=== PATIENT | male | born 1995 | race Two or more races ===

== ENCOUNTER 2018-10-01 16:48 | Emergency (ER) | payer OTHER ==
[2018-10-01] MEDS ORDERED: SODIUM CHLORIDE 1,000 ML IV SCH (17:15)
[2018-10-01 17:16] VITALS: BMI 29.9
--- NOTE | 2018-10-01 17:26 | PDOC ---
History of Present Illness - General Chief Complaint: Seizure Stated Complaint: SEIZURES Time Seen by Provider: 10/01/18 16:58 History Source: Patient Exam Limitations: No Limitations - History of Present Illness Initial Comments: 10/01/18 17:14 The patient is a 23M with no PMH who presents to the ER with complaints of having a seizure. The patient states that he was in his normal state of health when he had a seizure around 1600 today. He admits to being more tired than normal, but otherwise having no recent illness. He states that he came out of the bathroom, sat in a chair, and then had a seizure. He did lose consciousness but denies tongue biting, head trauma, bowel/bladder incontinence. He currently complains of feeling weak. He states that he was not disoriented when he came to. He admits to having a seizure 2 months ago, followed at [facility] and was not required to be put on any AED. The patient admits to drinking 1/2 pint of liquor every other day, smoking marijuana daily, and smoking 3-4 cigarettes daily. The patient is complaining of R shoulder pain, which he thinks he may have dislocated when he slid off the chair. He has dislocated the shoulder in the past. Past History - Past Medical History Allergies/Adverse Reactions: Allergies Allergy/AdvReac Type Severity Reaction Status Date / Time No Known Allergies Allergy Verified 10/01/18 17:29 Home Medications: Ambulatory Orders Naproxen [Naprosyn -] 500 mg PO BID #10 tablet 10/01/18 levETIRAcetam [Keppra -] 500 mg PO BID #14 tablet 10/01/18 Review of Systems - Review of Systems Able to Perform ROS?: Yes Comments:: 10/01/18 17:27 GENERAL/CONSTITUTIONAL: Positive for weakness. No fever or chills. HEAD, EYES, EARS, NOSE AND THROAT: No change in vision. No ear pain or discharge. No sore throat. CARDIOVASCULAR: No chest pain, palpitations, or lightheadedness. RESPIRATORY: No cough, wheezing, shortness of breath, or hemoptysis. GASTROINTESTINAL: No nausea, vomiting, diarrhea, constipation, or abdominal pain. GENITOURINARY: No dysuria, frequency, hematuria, or change in urination. MUSCULOSKELETAL: No joint or muscle swelling or pain. No neck or back pain. SKIN: No rash or lesions. NEUROLOGIC: Positive for seizure. No headache, numbness, tingling, focal weakness, loss of consciousness, or change in strength/sensation. Is the patient limited [place]er proficient: No *Physical Exam - Physical Exam Comments: 10/01/18 17:27 GENERAL: Well developed, well nourished. Awake and alert. No acute distress. HEENT: Normocephalic, atraumatic. Hearing grossly normal. Moist mucous membranes. PERRLA, EOMI. No conjunctival pallor. Sclera are non-icteric. NECK: Supple. Full ROM. No JVD. CARDIOVASCULAR: Regular rate and rhythm. No murmurs, rubs, or gallops. Radial pulses 2+ bilaterally. PULMONARY: No evidence of respiratory distress. Lungs clear to auscultation bilaterally. No wheezing, rales or rhonchi. ABDOMINAL: Soft. Non-tender. Non-distended. No rebound or guarding. GENITOURINARY: No CVA tenderness bilaterally. MUSCULOSKELETAL: Limited ROM in R shoulder. Otherwise, normal range of motion at all joints. No bony deformities or tenderness. EXTREMITIES: No cyanosis. No clubbing. No edema. No calf tenderness or swelling. SKIN: Warm and dry. Normal capillary refill. No rashes. No jaundice. NEUROLOGICAL: Alert, awake, appropriate. Cranial nerves 2-12 intact. No deficits to light touch and temperature in face, upper extremities and lower extremities. 5/5 strength in deltoids, biceps, triceps, quadriceps, hamstrings, and gastrocnemius. Finger to nose normal bilaterally. Normal speech. Gait is normal without ataxia. PSYCHIATRIC: Cooperative. Good eye contact. Appropriate mood and affect. ED Treatment Course - LABORATORY CBC & Chemistry Diagram: 10/01/18 17:30 10/01/18 17:20 - RADIOLOGY Radiology Studies Ordered: Category Date Time Status SHOULDER W/TRANS-RIGHT [RAD] Stat Radiology 10/01/18 17:08 Ordered Medical Decision Making - Medical Decision Making 10/01/18 17:28 The patient is a 23M who had 1 seizure in the past, not on AED, who presents to the ER after having a seizure, witnessed by the girlfriend. Imaging was done at [facility] including head CT and MRI which he was told was normal. Will not repeat imaging. Will order labs and d/w neurology for possible placement on AED. Pt is currently stable, comfortable, and well appearing. 10/01/18 19:04 CBC, CMP, CK WNL. Hydrating pt and will obtain head CT, then d/w neuro. 10/01/18 19:33 CTH negative. Hussein neuro, Dr. Avila. 10/01/18 20:10 Case d/w Dr. Avila who advises to prescribe keppra 500 BID and f/u next week in clinic. *DC/Admit/Observation/Transfer Diagnosis at time of Disposition: Seizure - Discharge Dispostion Disposition: HOME Condition at time of disposition: Stable Decision to Admit order: No - Prescriptions Prescriptions: levETIRAcetam [Keppra -] 500 mg PO BID #14 tablet Naproxen [Naprosyn -] 500 mg PO BID #10 tablet - Referrals Referrals: Yury Avila MD [Staff Physician] - - Patient Instructions Printed Discharge Instructions: DI for Seizure Disorder -- Adult Additional Instructions: Please follow up with your primary care physician in 2-3 days. Also, call Dr. Avila's office on Wednesday to schedule an appointment for next week. Please return to the ER if you have any signs or symptoms of chest pain, shortness of breath, uncontrollable fever, chills, nausea, vomiting, numbness, tingling, or weakness in any part of your body, changes in vision, or slurred speech. Please take your medications as prescribed. Please return to the ER if symptoms persist, worsen, or new symptoms arise. - Post Discharge Activity
[2018-10-01 17:42] LABS: BASO % 0.2 % (0-2.0); EOS % 0.3 % (0-4.5); HEMATOCRIT 46.2 % (35.4-49); HEMOGLOBIN 15.4 GM/dL (11.7-16.9); LYMPH % 14.3 % (8-40); MCH 30.7 pg (25.7-33.7); MCHC 33.3 g/dl (32.0-35.9); MEAN PLT VOLUME 8.3 fl (7.5-11.1); MONO % 6.2 % (3.8-10.2); PLATELET COUNT 451 K/MM3 (134-434); RBC 5.03 M/mm3 (4.00-5.60); RDW 15.5 % (11.9-15.9); WHITE BLOOD COUNT 8.4 K/mm3 (4.0-10.0)
--- NOTE | 2018-10-01 17:49 | PDOC ---
Attending Attestation - HPI HPI: 10/01/18 18:01 The patient is a 23 year old male presenting with his GF, with no significant past medical history of right shoulder dislocation an seizure, who presents to the ED complaining of a seizure today. He notes that his seizure was witnessed by his GF and lasted roughly 2-3 minutes. He denies any tongue biting, bowel / urinary incontinence or head trauma. He reports that he had a seizure 2 weeks ago and followed up with [facility] but did not require admission at the time. The patient is complaining of right shoulder pain. He has dislocated the shoulder in the past. The patient denies chest pain, shortness of breath, headache and dizziness. Denies fever, chills, nausea, vomiting, diarrhea or constipation. Allergies: None Past surgical history: None reported Social History: Alcohol use (1/2 pint of alcohol) every other day. Marijuana Daily. 3-4 Cigarettes daily. - Physicial Exam PE: 10/01/18 18:01 GENERAL: Well developed, well nourished. Awake and alert. No acute distress. HEENT: Normocephalic, atraumatic. Hearing grossly normal. Moist mucous membranes. PERRLA, EOMI. No conjunctival pallor. Sclera are non-icteric. NECK: Supple. Full ROM. No JVD. CARDIOVASCULAR: Regular rate and rhythm. No murmurs, rubs, or gallops. Radial pulses 2+ bilaterally. PULMONARY: No evidence of respiratory distress. Lungs clear to auscultation bilaterally. No wheezing, rales or rhonchi. ABDOMINAL: Soft. Non-tender. Non-distended. No rebound or guarding. GENITOURINARY: No CVA tenderness bilaterally. MUSCULOSKELETAL: Limited ROM in R shoulder. Otherwise, normal range of motion at all joints. No bony deformities or tenderness. EXTREMITIES: No cyanosis. No clubbing. No edema. No calf tenderness or swelling. SKIN: Warm and dry. Normal capillary refill. No rashes. No jaundice. NEUROLOGICAL: Alert, awake, appropriate. Cranial nerves 2-12 intact. No deficits to light touch and temperature in face, upper extremities and lower extremities. 5/5 strength in deltoids, biceps, triceps, quadriceps, hamstrings, and gastrocnemius. Finger to nose normal bilaterally. Normal speech. Gait is normal without ataxia. PSYCHIATRIC: Cooperative. Good eye contact. Appropriate mood and affect. <Zac Alfaro - Last Filed: 10/01/18 18:01> - Resident Resident Name: Alexis Mitchell - ED Attending Attestation I have performed the following: I have examined & evaluated the patient, The case was reviewed & discussed with the resident, I agree w/resident's findings & plan, Exceptions are as noted - Medical Decision Making 10/01/18 19:17 Lencho is a 23 yo M who presents to the ER s/p seizure He was in his usual state of health, has not been sleeping and has been under a lot of stress He thinks his prodrome is feeling "hot and cold" His girlfriend was present and states that he was shaking, staring, not responsive He fell off the chair No bowel or bladder incontinence Pt states this happened 1.5 months ago He was seen at an outside facility for the same, work up was apparently negative Pt was not started on anti epileptics Pt is at his baseline Reports pain in his right shoulder CT head: Normal CT scan of the head. No intracranial hemorrhages, extra-axial fluid collections or intra-axial mass lesion. Xray shoulder: : Normal study. No fractures. Clinical Impression: Seizure disorder Will contact Dr Avila will discharge to home <Angelica Farnsworth - Last Filed: 10/01/18 19:33>
[2018-10-01 18:12] LABS: ALBUMIN 3.7 g/dl (3.4-5.0); ALK PHOS 44 U/L (45-117); ANION GAP 11 MMOL/L (8-16); BILIRUBIN,TOTAL 0.7 mg/dL (0.2-1); BLOOD UREA NITROGEN 10 mg/dL (7-18); CALCIUM 9.1 mg/dL (8.5-10.1); CHLORIDE 104 mmol/L (98-107); CO2 23 mmol/L (21-32); CREATININE 0.8 mg/dL (0.55-1.3); GLUCOSE,RANDOM 89 mg/dL (74-106); MAGNESIUM 2.1 mg/dL (1.8-2.4); POTASSIUM 4.4 mmol/L (3.5-5.1); SGOT/AST 21 U/L (15-37); SGPT/ALT 27 U/L (13-61); SODIUM 138 mmol/L (136-145); TOT PROT 7.2 g/dl (6.4-8.2)
[2018-10-01] MEDS ORDERED: KETOROLAC TROMETHAMINE 30 MG/1 ML VIAL IVPUSH ONE (18:19)
[2018-10-01] MEDS ORDERED: KETOROLAC TROMETHAMINE 30 MG/1 ML VIAL ONE (18:53)
[2018-10-01 20:05] LABS: COCAINE, UR NEGATIVE ng/ml (CUTOFF=300); METHADONE, UR NEGATIVE ng/ml (CUTOFF=300); OPIATES, URI NEGATIVE ng/ml (CUTOFF=300); PHENCYCLIDINE,URINE NEGATIVE ng/ml (CUTOFF=25); URINE AMPHETAMINES NEGATIVE ng/ml (CUTOFF=500); URINE BARBITURATES NEGATIVE ng/ml (CUTOFF=200)
[2018-10-01 20:07] LABS: URINE BENZODIAZEPINES POSITIVE ng/ml (CUTOFF=200)
[2018-10-01] MEDS ORDERED: levETIRAcetam 500 MG TABLET (FP) PO ONE ×2 (20:24→20:28)
[2018-10-01 20:31] VITALS: BP 130/70; PULSE 74; TEMP 98.1
== END 2018-10-01 20:45 | disposition home or self-care (01) ==
LOC: JER 16:48
DX: R56.9 Unspecified convulsions (principal); M25.511 Pain in right shoulder; W07.XXXA Fall from chair, initial encounter; Y93.89 Activity, other specified; Y92.018 Other place in single-family (private) house as the place of occurrence of the external cause; Y99.8 Other external cause status
CPT/HCPCS: 36415; 70450-TC; 73030-TC-RT-FY; 80053; 80307; 82550; 82553; 83735; 85025; 99283-25; J7030